=== PATIENT | female | born 1965 | race Caucasian/White ===

== ENCOUNTER → 2019-10-12 13:38 | Outpatient (CLI) | payer OTHER, SELFPAY ==
--- NOTE | ~2019-10-12 | US_ITS ---
EXAMINATION: US transvaginal DATE: 10/12/2019 14:04 INDICATION: Irregular bleeding TECHNIQUE: Multiple endovaginal sonographic images of the pelvis were obtained. COMPARISON: None. FINDINGS: The uterus measures 7.7 x 4.0 x 4.8 cm. The endometrial complex measures 9 mm. The right ov jose measures 3.4 x 2.3 x 3.5 cm and contains a 2.3 cm cyst. The left ovary measures 2.9 x 2.0 x 2.7 c m. There is normal vascular flow in the ovaries. There is normal vascular flow in the ovaries. There is no free fluid in the pelvis. IMPRESSION: 1. No sonographic correlate for the patient's symptoms. Reviewed, dictated and finalized at location A.
== END ==
PROVIDERS: Visit Provider Obstetrics & Gynecology Gynecology
DX: N92.6 Irregular menstruation, unspecified (principal)
CPT/HCPCS: 76830